=== PATIENT | male | born 1960 | race Two or more races ===

== ENCOUNTER 2024-12-15 06:22 | Day surgery (SDC) | payer OTHER ==
[2024-12-15] MEDS ORDERED: MIDAZOLAM HCL 2 MG/2 ML VIAL IV ONE (14:15)
[2024-12-15] MEDS ORDERED: DIPHENHYDRAMINE HCL 50 MG/ML VIAL 1ML IV ONE (14:15)
[2024-12-15] MEDS ORDERED: fentaNYL CITRATE 50 MCG/ML AMPUL IV PUSH ONE (14:15)
== END 2024-12-15 14:15 | disposition home or self-care (01) ==
LOC: CIR.AMB 06:22
PROVIDERS: ATTEND Internal Medicine
DX: K63.5 Polyp of colon (principal); K29.50 Unspecified chronic gastritis without bleeding; B96.81 Helicobacter pylori [H. pylori] as the cause of diseases classified elsewhere; D12.2 Benign neoplasm of ascending colon; D12.4 Benign neoplasm of descending colon; D12.5 Benign neoplasm of sigmoid colon; D12.3 Benign neoplasm of transverse colon; D64.9 Anemia, unspecified; K31.89 Other diseases of stomach and duodenum; D13.1 Benign neoplasm of stomach